=== PATIENT | male | born 1990 | race Caucasian/White ===

== ENCOUNTER 2017-01-17 12:40 | Emergency (ER) | payer OTHER ==
[~2017-01-17] VITALS: Ht 188 cm; Wt 127.7 kg
[~2017-01-17 12:40] MED LIST: COMBVENT; FLOVENT
[2017-01-17 13:11] VITALS: BP 163/97
[2017-01-17] MEDS ORDERED: BACTRIM 160MG/800MG DS TAB PO ONE (14:00)
[2017-01-17] MEDS ORDERED: KETO2CR EXT (14:03)
[2017-01-17] MEDS ORDERED: BACT800T5 PO (14:03)
== END 2017-01-17 14:13 | disposition home or self-care (01) ==
LOC: M ED 12:40
DX: L03.116 Cellulitis of left lower limb (principal); L03.032 Cellulitis of left toe; J45.909 Unspecified asthma, uncomplicated; F17.200 Nicotine dependence, unspecified, uncomplicated; Z90.89 Acquired absence of other organs; Z88.0 Allergy status to penicillin; Z88.1 Allergy status to other antibiotic agents; Z88.8 Allergy status to other drugs, medicaments and biological substances

== ENCOUNTER 2017-01-24 17:20 | Observation (INO) | payer OTHER ==
[~2017-01-24] VITALS: Ht 188 cm; Wt 124.2 kg
[~2017-01-24 17:20] MED LIST changes: +BACT800T5 PO; +KETO2CR EXT; +VANCOMYCIN HCL 1,000 MG, VIAL MATE ADAPTER 1 EACH in D5W 250 ML IV SCH
[2017-01-24] MEDS ORDERED: LOTR1CRE11 TOP (17:57)
[2017-01-24] MEDS ORDERED: IMIPENEM/CILASTATIN 500 MG in D5W MINI-BAG PLUS 100 ML IV ONE (21:00)
[2017-01-24 21:29] LABS: BASO % 0.4 % (0.0-1.0); EOS # 0.1 K/mm3 (0.0-0.50); EOS % 1.1 % (0.0-3.0); LARGE UNSTAINED CELL # 0.2 K/mm3 (0.0-0.4); LYMPH # 2.3 K/mm3 (1.5-6.5); LYMPH % 17.7 % (24.0-44.0); MEAN CORPUSCULAR HEMOGLOBIN 30.5 pg (27.0-33.0); MEAN CORPUSCULAR HGB CONC 35.2 g/dl (32.0-36.5); MEAN CORPUSCULAR VOLUME 86.6 fl (80.0-96.0); MONO # 0.7 K/mm3 (0.0-0.8); MONO % 6.2 % (0.0-5.0); NEUTROPHILS # 8.4 K/mm3 (1.8-7.7); NEUTROPHILS % 72.5 % (36.0-66.0); PLATELET COUNT, AUTOMATED 251 k/mm3 (150-450); RED CELL DISTRIBUTION WIDTH 12.8 % (11.5-14.5); WHITE BLOOD COUNT 11.5 K/mm3 (4.0-10.0)
[2017-01-24 21:39] LABS: ALBUMIN 4.7 GM/DL (3.2-5.2); ALBUMIN/GLOBULIN RATIO 1.27 (1.00-1.93); ALKALINE PHOSPHATASE 54 U/L (45-117); ALT/SGPT 42 U/L (12-78); ANION GAP 11 MEQ/L (8-16); AST/SGOT 26 U/L (15-37); BILIRUBIN,DIRECT 0.2 MG/DL (0.0-0.2); BILIRUBIN,TOTAL 0.9 MG/DL (0.2-1.0); BLOOD UREA NITROGEN 18 MG/DL (7-18); CALCIUM LEVEL 9.3 MG/DL (8.5-10.1); CARBON DIOXIDE LEVEL 21 MEQ/L (21-32); CHLORIDE LEVEL 103 MEQ/L (98-107); CREATININE FOR GFR 1.14 MG/DL (0.70-1.30); GLOMERULAR FILTRATION RATE > 60.0 (>60); GLUCOSE, FASTING 100 MG/DL (70-105); POTASSIUM SERUM 4.2 MEQ/L (3.5-5.1); SODIUM LEVEL 135 MEQ/L (136-145); TOTAL PROTEIN 8.4 GM/DL (6.4-8.2)
[2017-01-24 21:45] LABS: MICROSCOPIC INDICATED? MAN YES (NO)
[2017-01-24 21:55] LABS: SQUAMOUS EPITHELIAL CELL URINE SMALL AMOUNT /hpf (SMALL AMT)
[2017-01-24 21:59] LABS: GRANULAR CAST, URINE 0-1 /lpf; URIC ACID CRYSTALS, URINE LARGE AMOUNT /hpf
[2017-01-24 22:01] LABS: BACTERIA, URINE NONE SEEN; HYALINE CAST, URINE NONE SEEN /lpf (0-1); MICROSCOPIC EXAM PERFORMED
[2017-01-24 22:07] LABS: ERYTHROCYTE SEDIMENTATION RATE 5 mm/hr (0-15)
[2017-01-24] MEDS ORDERED: BACT800T5 PO (22:44)
[2017-01-24] MEDS ORDERED: ACETAMINOPHEN TAB 650MG DOSE (2X325MG) PO PRN (22:45)
[2017-01-24] MEDS ORDERED: MORPHINE 2 MG/ML 1ML SYRINGE IV PRN (22:45)
[2017-01-24] MEDS ORDERED: ONDANSETRON 4MG/2ML VIAL (J2405) IV PRN (22:45)
[2017-01-24] MEDS ORDERED: hydrOXYzine 10 MG TAB PO PRN (23:15)
[2017-01-24] MEDS ORDERED: IPRATROPIUM 0.5MG/ALBUTEROL 2.5MG INH SOL UD 3ML (DUONEB)(J7620) NEB PRN (23:30)
[2017-01-24 23:39] LABS: MAGNESIUM LEVEL 2.3 MG/DL (1.8-2.4)
[2017-01-25] MEDS ORDERED: VANCOMYCIN HCL 1,000 MG, VIAL MATE ADAPTER 1 EACH in D5W 250 ML IV ONE (00:30)
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
[2017-01-25] MEDS: IPRATROPIUM 0.5MG/ALBUTEROL 2.5MG INH SOL UD 3ML (DUONEB)(J7620) NEB SCH ×4 (01:13→23:47)
--- NOTE | 2017-01-25 04:31 | PHACANCOPD ---
PHARMACY VANCOMYCIN DOSING Pt Demographics Demographics Patient Age:26 , Weight:127.200 , Gender: male Adjusted Body Weight Date: 01/25/17, Adjusted Body Weight: [100.2] Kg Vancomycin Vancomycin indication: LEFT ANKLE CELLULITIS Vancomycin Target Ranges: 15-20 mcg/ml Vancomycin Load Y/N: Yes Load Dose Date Time Vancomycin Load Dose: 2GM Date: 01/25 Time: 0200 Vancomycin Dose Date: 01/25/17. Current Vancomycin Dose: [1GM Q8H] Intermittent Dosing?: No Labs Labs Laboratory Tests 01/24/17 21:08 Red Blood Count 5.33, Mean Corpuscular Volume 86.6, Mean Corpuscular Hemoglobin 30.5, Mean Corpuscular Hemoglobin Concent 35.2, Red Cell Distribution Width 12.8 , Neutrophils (%) (Auto) 72.5 H, Lymphocytes (%) (Auto) 17.7 L, Monocytes (%) ( Auto) 6.2 H, Eosinophils (%) (Auto) 1.1, Basophils (%) (Auto) 0.4, Neutrophils # (Auto) 8.4 H, Lymphocytes # (Auto) 2.3, Monocytes # (Auto) 0.7, Eosinophils # (Auto) 0.1, Basophils # (Auto) 0.0 Micro Microbiology 01/24/17 Blood Culture, Received Pending 01/24/17 Blood Culture, Received Pending Creatinine Clearance Date:01/25/17. Creatinine Clearance: [138].CALCULATED Pending Labs VANCO TROUGH DUE 01/25@1800 Assessment and Plan Maintaining Current Dose?: Yes Reason for dose change: No Dose Change Pharmacist Note Pharmacist Note Date: 01/25/17. Pharmacist note:[id number] ADMITTED W/LEFT ANKLE CELLULITUS: SCR=1.14, HT=74',DL=793.2KG,DBJM=858. Vancomycin 2 gm load given in ED,Then continued at 1 gm iv q8h,trough ordered for 01/25@1800-will continue to follow levels and labs T[facility] Jan 25, 2017 04:31
[2017-01-25] MEDS: NS 1,000 ML IV SCH ×3 (05:12→18:53)
[2017-01-25] MEDS: HEPARIN SOD (PORCINE) 5000 UNITS/ML VIAL SC SCH ×3 (06:00→21:15)
[2017-01-25 07:10] VITALS: BP 124/72
[2017-01-25 07:13] LABS: BASO % 0.5 % (0.0-1.0); EOS # 0.1 K/mm3 (0.0-0.50); EOS % 1.6 % (0.0-3.0); LARGE UNSTAINED CELL # 0.3 K/mm3 (0.0-0.4); LARGE UNSTAINED CELL % 2.8 % (0.0-4.0); LYMPH # 1.6 K/mm3 (1.5-6.5); LYMPH % 15.2 % (24.0-44.0); MEAN CORPUSCULAR HEMOGLOBIN 30.1 pg (27.0-33.0); MEAN CORPUSCULAR HGB CONC 34.5 g/dl (32.0-36.5); MEAN CORPUSCULAR VOLUME 87.4 fl (80.0-96.0); MONO # 0.8 K/mm3 (0.0-0.8); MONO % 9.5 % (0.0-5.0); NEUTROPHILS # 6.1 K/mm3 (1.8-7.7); NEUTROPHILS % 70.3 % (36.0-66.0); PLATELET COUNT, AUTOMATED 211 k/mm3 (150-450); WHITE BLOOD COUNT 8.7 K/mm3 (4.0-10.0)
[2017-01-25 07:40] LABS: ANION GAP 10 MEQ/L (8-16); BLOOD UREA NITROGEN 18 MG/DL (7-18); CALCIUM LEVEL 8.7 MG/DL (8.5-10.1); CARBON DIOXIDE LEVEL 26 MEQ/L (21-32); CHLORIDE LEVEL 105 MEQ/L (98-107); GLOMERULAR FILTRATION RATE > 60.0 (>60); GLUCOSE, FASTING 121 MG/DL (70-105); POTASSIUM SERUM 3.6 MEQ/L (3.5-5.1); SODIUM LEVEL 141 MEQ/L (136-145)
--- NOTE | 2017-01-25 08:02 | REP ---
Chest, single PA view: Comparison is 02/08/2007. The lung andrade are clear. The cardiac size is normal The reese, mediastinum, and bony thorax are unremarkable. Impression: Negative PA chest. There is no interval change Signed by Wlilie Jacobson MD 01/25/2017 07:52 A
[2017-01-25] MEDS: VANCOMYCIN HCL 1,000 MG, VIAL MATE ADAPTER 1 EACH in D5W 250 ML IV SCH ×3 (10:43→20:39)
[2017-01-25] MEDS: DOCUSATE SODIUM 100 MG CAP PO SCH ×3 (10:44→20:39)
[2017-01-25 14:00] VITALS: BP 144/79
--- NOTE | 2017-01-25 17:53 | IPNPDOC ---
Text Note Date of Service The patient was seen on 01/25/17. NOTE Subjective: Patient states area of cellulitis has improved. Mild tenderness to palpation. Objective: Vitals: (see below) General: No acute distress, laying comfortably in bed. HEENT: Moist mucous membranes. Neck: No JVD or lymphadenopathy Cardiac: RRR, No murmurs Pulm: Clear to auscultation b/l. No wheezing, rhonchi Abd: NT/ND + BS Ext: Erythema of the LLE improving. Area was marked on admission and erythema is significantly improved. No cyanosis. Distal pulses intact. Labs (see below) Images: CXR 01/24/17 Impression: Negative PA chest. There is no interval change Assessment/Plan 1. LLE cellulitis - failed outpatient therapy. Continue vancomycin IV. Cultures pending. We will send for x-rays also ultrasound lower extremity. We' ll also obtain hepatitis panel and HIV given recurrent cellulitis. Patient is an IV drug abuser. Afebrile. Leukocytosis improving. 2. IV drug abuse- admitted to IV amphetamines on admission. Cessation counseling. Will need outpatient rehabilitation services. 3. Chest tightness- resolved. ? Related to drug use. Cardiac enzymes negative. EKG with no acute ST changes. 4. History of asthma- on nebulizers. Stable. 5. History of anxiety/depression. Will need outpatient follow-up. 6. History of seasonal allergies. DVT prophylaxis- hep subcutaneous. VS,Fishbone, I+O VS, Fishbone, I+O Laboratory Tests 01/24/17 21:08 Red Blood Count 5.33, Mean Corpuscular Volume 86.6, Mean Corpuscular Hemoglobin 30.5, Mean Corpuscular Hemoglobin Concent 35.2, Red Cell Distribution Width 12.8 , Neutrophils (%) (Auto) 72.5 H, Lymphocytes (%) (Auto) 17.7 L, Monocytes (%) ( Auto) 6.2 H, Eosinophils (%) (Auto) 1.1, Basophils (%) (Auto) 0.4, Neutrophils # (Auto) 8.4 H, Lymphocytes # (Auto) 2.3, Monocytes # (Auto) 0.7, Eosinophils # (Auto) 0.1, Basophils # (Auto) 0.0 01/25/17 06:50 Red Blood Count 4.91, Mean Corpuscular Volume 87.4, Mean Corpuscular Hemoglobin 30.1, Mean Corpuscular Hemoglobin Concent 34.5, Red Cell Distribution Width 13.0 , Neutrophils (%) (Auto) 70.3 H, Lymphocytes (%) (Auto) 15.2 L, Monocytes (%) ( Auto) 9.5 H, Eosinophils (%) (Auto) 1.6, Basophils (%) (Auto) 0.5, Neutrophils # (Auto) 6.1, Lymphocytes # (Auto) 1.6, Monocytes # (Auto) 0.8, Eosinophils # ( Auto) 0.1, Basophils # (Auto) 0.0, Calcium Level 8.7 Vital Signs Date Time Temp Pulse Resp B/P (MAP) Pulse Ox O2 Delivery O2 Flow Rate FiO2 01/25/17 14:00 98.0 91 18 144/79 (100) 94 Room Air I&O- Last 24 Hours up to 6 AM 01/25/17 05:59 Intake Total 370 ml Balance 370 ml MARCIO GREER MD Jan 25, 2017 17:53
--- NOTE | 2017-01-25 19:41 | REP ---
LEFT LOWER LEG: AP and lateral views of the left lower leg are performed. There is no fracture, dislocation or osseous destruction. No periosteal reaction is seen. IMPRESSION: Negative exam left lower leg. Signed by Willie Freire MD 01/25/2017 08:18 P
--- NOTE | 2017-01-25 20:17 | REP ---
Bilateral lower extremity Duplex Doppler venous ultrasound: Real time compression and duplex Doppler interrogation of the bilateral lower extremity deep venous system is performed. Bilaterally, the common femoral, superficial femoral and popliteal veins are fully compressible with transducer pressure and demonstrate normal spontaneous and phasic flow, without evidence of deep venous thrombosis. Impression: No evidence of deep venous thrombosis of the bilateral lower extremity femoral popliteal venous system. Signed by Willie Freire MD 01/25/2017 08:08 P
[2017-01-25 22:00] VITALS: BP 117/66
[2017-01-26] MEDS: VANCOMYCIN HCL 1,000 MG, VIAL MATE ADAPTER 1 EACH in D5W 250 ML IV SCH ×2 (02:25→08:39)
[2017-01-26] MEDS: NS 1,000 ML IV SCH ×2 (02:26→08:39)
[2017-01-26 06:00] VITALS: BP 131/75
[2017-01-26] MEDS: HEPARIN SOD (PORCINE) 5000 UNITS/ML VIAL SC SCH (06:00)
[2017-01-26 06:50] LABS: BASO % 0.6 % (0.0-1.0); EOS # 0.2 K/mm3 (0.0-0.50); LARGE UNSTAINED CELL # 0.2 K/mm3 (0.0-0.4); LARGE UNSTAINED CELL % 3.3 % (0.0-4.0); LYMPH # 1.9 K/mm3 (1.5-6.5); LYMPH % 35.6 % (24.0-44.0); MEAN CORPUSCULAR HEMOGLOBIN 30.6 pg (27.0-33.0); MEAN CORPUSCULAR HGB CONC 34.7 g/dl (32.0-36.5); MEAN CORPUSCULAR VOLUME 88.1 fl (80.0-96.0); MONO # 0.4 K/mm3 (0.0-0.8); MONO % 7.4 % (0.0-5.0); NEUTROPHILS # 2.5 K/mm3 (1.8-7.7); NEUTROPHILS % 50.1 % (36.0-66.0); PLATELET COUNT, AUTOMATED 208 k/mm3 (150-450); WHITE BLOOD COUNT 4.9 K/mm3 (4.0-10.0)
[2017-01-26 07:01] LABS: ANION GAP 9 MEQ/L (8-16); BLOOD UREA NITROGEN 9 MG/DL (7-18); CALCIUM LEVEL 8.3 MG/DL (8.5-10.1); CARBON DIOXIDE LEVEL 25 MEQ/L (21-32); CHLORIDE LEVEL 112 MEQ/L (98-107); CREATININE FOR GFR 0.68 MG/DL (0.70-1.30); GLOMERULAR FILTRATION RATE > 60.0 (>60); GLUCOSE, FASTING 113 MG/DL (70-105); POTASSIUM SERUM 4.4 MEQ/L (3.5-5.1); SODIUM LEVEL 146 MEQ/L (136-145)
[2017-01-26 07:30] LABS: ERYTHROCYTE SEDIMENTATION RATE 10 mm/hr (0-15)
[2017-01-26] MEDS: IPRATROPIUM 0.5MG/ALBUTEROL 2.5MG INH SOL UD 3ML (DUONEB)(J7620) NEB SCH (07:36)
[2017-01-26] MEDS: DOCUSATE SODIUM 100 MG CAP PO SCH (08:39)
[2017-01-26] MEDS ORDERED: DOXY-278 PO (10:38)
[2017-01-26 11:15] LABS: HEPATITIS B SURFACE ANTIBODY POSITIVE (POSITIVE)
--- NOTE | 2017-01-26 16:42 | DS.PDOC ---
Discharge Summary General Date of Admission Jan 24, 2017 at 22:11 Date of Discharge 01/26/17 Attending Physician: MARCIO GREER MD Discharge Summary PROCEDURES PERFORMED DURING STAY: None. ADMITTING/DISCHARGE DIAGNOSES: 1. Cellulitis of the left lower extremity, failed outpatient therapy. 2. History of IV drug abuse, recent use of IV amphetamines and heroin. 3. History of asthma 4. History of anxiety and depression COMPLICATIONS/CHIEF COMPLAINT: Cellulitis. HISTORY OF PRESENT ILLNESS/HOSPITAL COURSE: . This is a 26-year-old male past medical history of IV drug abuse recently using IV amphetamines as well as heroin who presents complaining of erythema and pain of the left lower extremity. Patient was noted to have cellulitis of the left lower extremity was patient's however the erythema has not improved. Patient was admitted and placed on vancomycin with significant improvement of his cellulitis. I did dependency counselor the patient on cessation of IV drug abuse as well as tobacco abuse , and seeking rehabilitation. Patient states he will think about it however is not interested at this time. At this time patient denies any chest pain/SOB/palpitations. He remains hemodynamically stable. Patient will be discharged today to complete a full course of antibiotics for his cellulitis. DISCHARGE MEDICATIONS: Please see below. ALLERGIES: Please see below. PHYSICAL EXAMINATION ON DISCHARGE: Vitals: (see below) General: No acute distress, laying comfortably in bed. HEENT: Moist mucous membranes. Neck: No JVD or lymphadenopathy Cardiac: RRR, No murmurs Pulm: Clear to auscultation b/l. No wheezing, rhonchi Abd: NT/ND + BS Ext: Erythema of the LLE resolved. No cyanosis. Distal pulses intact. Neuro: Strength 5/5 BUE and BLE. CN 2-12 intact. F to N intact Ambulating well. LABORATORY DATA: Please see below. IMAGING: CXR 01/24/17 Impression: Negative PA chest. There is no interval change Doppler ultrasound 01/25/17 Impression: No evidence of deep venous thrombosis of the bilateral lower extremity femoral popliteal venous system. X-ray of the tibial/fibular region on 01/25/17 IMPRESSION: Negative exam left lower leg. PROGNOSIS: Fair ACTIVITY: As tolerated. DIET: Regular diet DISCHARGE PLAN/DISPOSITION: Home, Self-Care. DISCHARGE INSTRUCTIONS: 1. Follow-up PCP 1-2 weeks. Consider rehabilitation for IV drug abuse. DISCHARGE CONDITION: Stable. TIME SPENT ON DISCHARGE: Greater than 30 minutes. Vital Signs/I&Os Vital Signs Date Time Temp Pulse Resp B/P (MAP) Pulse Ox O2 Delivery O2 Flow Rate FiO2 01/26/17 06:00 97.1 75 16 131/75 (93) 94 Room Air I&O- Last 24 Hours up to 6 AM 01/26/17 06:00 Intake Total 6030 ml Output Total 2200 ml Balance 3830 ml Laboratory Data Labs 24H Laboratory Tests 2 01/25/17 17:49: Vancomycin Level Trough 7.8L 01/26/17 06:34: White Blood Count 4.9, Red Blood Count 4.44, Hemoglobin 13.6L, Hematocrit 39.1L , Mean Corpuscular Volume 88.1, Mean Corpuscular Hemoglobin 30.6, Mean Corpuscular Hemoglobin Concent 34.7, Red Cell Distribution Width 13.0, Platelet Count 208, Neutrophils (%) (Auto) 50.1, Lymphocytes (%) (Auto) 35.6, Monocytes ( %) (Auto) 7.4H, Eosinophils (%) (Auto) 3.0, Basophils (%) (Auto) 0.6, Neutrophils # (Auto) 2.5, Lymphocytes # (Auto) 1.9, Monocytes # (Auto) 0.4, Eosinophils # (Auto) 0.2, Basophils # (Auto) 0.0, Large Unclassified Cells % 3.3 , Large Unclassified Cells # 0.2, Erythrocyte Sedimentation Rate 10, Anion Gap 9 , Glomerular Filtration Rate > 60.0, Blood Urea Nitrogen 9, Creatinine 0.68L, Sodium Level 146H, Potassium Level 4.4#, Chloride Level 112H, Carbon Dioxide Level 25, Calcium Level 8.3L, C-Reactive Protein, Quantitative 2.92H, Hepatitis B Surface Antigen NEGATIVE, Hepatitis B Surface Antibody POSITIVE, HIV Antigen/ Antibody Combo Qual NEGATIVE CBC/BMP Laboratory Tests 01/26/17 06:34 Red Blood Count 4.44, Mean Corpuscular Volume 88.1, Mean Corpuscular Hemoglobin 30.6, Mean Corpuscular Hemoglobin Concent 34.7, Red Cell Distribution Width 13.0 , Neutrophils (%) (Auto) 50.1, Lymphocytes (%) (Auto) 35.6, Monocytes (%) (Auto ) 7.4 H, Eosinophils (%) (Auto) 3.0, Basophils (%) (Auto) 0.6, Neutrophils # ( Auto) 2.5, Lymphocytes # (Auto) 1.9, Monocytes # (Auto) 0.4, Eosinophils # (Auto ) 0.2, Basophils # (Auto) 0.0, Calcium Level 8.3 L Microbiology Microbiology 01/24/17 Blood Culture - Preliminary, Resulted No growth after 24 hours . All specim... 01/24/17 Blood Culture - Preliminary, Resulted No growth after 24 hours . All specim... Discharge Medications Scheduled Clotrimazole (Lotrimin AF) 1 % Cre, 1 DOSE TOP BID, (Reported) Doxycycline Hyclate (Doxycycline) 100 Mg Cap, 100 MG PO Q12H Allergies Coded Allergies: Cephalosporins (Verified Allergy, Intermediate, RASH, 01/24/17) Penicillins (Verified Allergy, Intermediate, RASH, 01/24/17) Penicillins Cross Reactors (Verified Allergy, Intermediate, RASH, 01/24/17) Clindamycin (Verified Allergy, Unknown, 01/24/17) SEASONAL ALLERGIES (Verified Allergy, Unknown, 01/24/17) MARCIO GREER MD Jan 26, 2017 16:42
[2017-01-28 10:13] LABS: HEPATITIS C QUANTITATION HCV Not Detected IU/mL (.)
== END 2017-01-26 11:42 | disposition home or self-care (01) ==
LOC: M ED 17:20 → M ED INP 22:11 → M MSPAV 01-25 07:01
PROVIDERS: ADMIT Hospitalist; ATTEND Internal Medicine
DX: L03.116 Cellulitis of left lower limb (principal); F15.10 Other stimulant abuse, uncomplicated; F11.10 Opioid abuse, uncomplicated; R07.89 Other chest pain; J45.909 Unspecified asthma, uncomplicated; F41.9 Anxiety disorder, unspecified; F32.9 Major depressive disorder, single episode, unspecified; F17.210 Nicotine dependence, cigarettes, uncomplicated; Z79.2 Long term (current) use of antibiotics; Z88.0 Allergy status to penicillin; Z88.1 Allergy status to other antibiotic agents
CPT/HCPCS: 36415; 71010; 73590; 80048; 80076; 80202; 81000; 82550; 82553; 83605; 83735; 84443; 85025; 85652; 86140; 86704; 86706; 87040; 87340; 87389; 87522; 93970; 94640; 96365; 96367; 96372; 96376; 99284; J3370

== ENCOUNTER 2017-02-17 15:48 | Emergency (ER) | payer OTHER ==
[~2017-02-17] VITALS: Ht 188 cm; Wt 98.1 kg
[2017-02-17 15:48] VITALS: BP 137/78
[~2017-02-17 15:48] MED LIST changes: +DOXY-278 PO; +LOTR1CRE11 TOP; -VANCOMYCIN HCL 1,000 MG, VIAL MATE ADAPTER 1 EACH in D5W 250 ML IV SCH
[2017-02-17] MEDS ORDERED: DOXY100C37 PO (18:44)
[2017-02-17] MEDS ORDERED: ULTR50TA8 PO (18:44)
== END 2017-02-17 19:10 | disposition home or self-care (01) ==
LOC: M ED 15:48
DX: L03.115 Cellulitis of right lower limb (principal); F17.210 Nicotine dependence, cigarettes, uncomplicated; F19.10 Other psychoactive substance abuse, uncomplicated; Z88.0 Allergy status to penicillin; Z88.1 Allergy status to other antibiotic agents; J30.2 Other seasonal allergic rhinitis

== ENCOUNTER 2017-03-05 06:49 | Emergency (ER) | payer OTHER ==
[~2017-03-05] VITALS: Ht 188 cm; Wt 115.9 kg
[~2017-03-05 06:49] MED LIST changes: +DOXY100C37 PO; +ULTR50TA8 PO
[2017-03-05] MEDS ORDERED: traMADol 50 MG TAB PO ONE (08:45)
[2017-03-05] MEDS ORDERED: IBUP80TA PO (08:46)
[2017-03-05] MEDS ORDERED: BACT800T5 PO (08:46)
[2017-03-05 08:47] LABS: BASO % 0.2 % (0.0-1.0); EOS # 0.1 K/mm3 (0.0-0.50); EOS % 1.4 % (0.0-3.0); LARGE UNSTAINED CELL # 0.1 K/mm3 (0.0-0.4); LARGE UNSTAINED CELL % 1.5 % (0.0-4.0); LYMPH % 11.2 % (24.0-44.0); MEAN CORPUSCULAR HEMOGLOBIN 30.4 pg (27.0-33.0); MEAN CORPUSCULAR HGB CONC 34.9 g/dl (32.0-36.5); MEAN CORPUSCULAR VOLUME 87.2 fl (80.0-96.0); MONO # 0.5 K/mm3 (0.0-0.8); NEUTROPHILS % 79.7 % (36.0-66.0); PLATELET COUNT, AUTOMATED 206 k/mm3 (150-450); RED CELL DISTRIBUTION WIDTH 13.3 % (11.5-14.5); WHITE BLOOD COUNT 8.8 K/mm3 (4.0-10.0)
[2017-03-05 09:11] LABS: ALBUMIN 3.4 GM/DL (3.2-5.2); ALBUMIN/GLOBULIN RATIO 1.13 (1.00-1.93); ALKALINE PHOSPHATASE 45 U/L (45-117); ALT/SGPT 33 U/L (12-78); ANION GAP 11 MEQ/L (8-16); AST/SGOT 19 U/L (15-37); BILIRUBIN,TOTAL 0.5 MG/DL (0.2-1.0); BLOOD UREA NITROGEN 17 MG/DL (7-18); CALCIUM LEVEL 8.4 MG/DL (8.5-10.1); CARBON DIOXIDE LEVEL 24 MEQ/L (21-32); CHLORIDE LEVEL 108 MEQ/L (98-107); CREATININE FOR GFR 0.77 MG/DL (0.70-1.30); GLOMERULAR FILTRATION RATE > 60.0 (>60); GLUCOSE, FASTING 121 MG/DL (70-105); POTASSIUM SERUM 3.7 MEQ/L (3.5-5.1); SODIUM LEVEL 143 MEQ/L (136-145); TOTAL PROTEIN 6.4 GM/DL (6.4-8.2)
[2017-03-05 10:06] LABS: ERYTHROCYTE SEDIMENTATION RATE 12 mm/hr (0-15)
[2017-03-05 10:15] VITALS: BP 160/80
== END 2017-03-05 10:16 | disposition home or self-care (01) ==
LOC: M ED 06:49
DX: L08.9 Local infection of the skin and subcutaneous tissue, unspecified (principal); M79.605 Pain in left leg; J45.909 Unspecified asthma, uncomplicated; F41.9 Anxiety disorder, unspecified; F32.9 Major depressive disorder, single episode, unspecified; F17.200 Nicotine dependence, unspecified, uncomplicated; F11.10 Opioid abuse, uncomplicated; F15.10 Other stimulant abuse, uncomplicated; Z88.1 Allergy status to other antibiotic agents; Z88.0 Allergy status to penicillin

== ENCOUNTER 2017-07-06 06:13 | Emergency (ER) | payer OTHER ==
[2017-07-06 06:41] LABS: BASO % 0.3 % (0.0-1.0); EOS # 0.1 10^3/uL (0.0-0.50); EOS % 0.7 % (0.0-3.0); HEMATOCRIT 47.7 % (42.0-52.0); HEMOGLOBIN 16.2 g/dl (14.0-18.0); IMMATURE GRANULOCYTE % 0.2 % (0-0); LYMPH # 2.8 10^3/uL (1.5-6.5); LYMPH % 30.6 % (24.0-44.0); MEAN CORPUSCULAR HEMOGLOBIN 29.6 pg (27.0-33.0); MONO # 0.9 10^3/uL (0.0-0.8); MONO % 10.3 % (0.0-5.0); NEUTROPHILS # 5.3 10^3/uL (1.8-7.7); NEUTROPHILS % 57.9 % (36.0-66.0); PLATELET COUNT, AUTOMATED 260 10^3/uL (150-450); RED BLOOD COUNT 5.48 10^6/uL (4.30-6.10); RED CELL DISTRIBUTION WIDTH 14.4 % (11.5-14.5); WHITE BLOOD COUNT 9.1 10^3/uL (4.0-10.0)
[2017-07-06] MEDS: NS 1,000 ML IV (06:41)
[2017-07-06 07:05] LABS: ALBUMIN/GLOBULIN RATIO 0.98 (1.00-1.93); ALKALINE PHOSPHATASE 64 U/L (45-117); ALT/SGPT 44 U/L (12-78); ANION GAP 7 MEQ/L (8-16); AST/SGOT 20 U/L (7-37); BILIRUBIN,DIRECT 0.2 MG/DL (0.0-0.2); BILIRUBIN,TOTAL 0.5 MG/DL (0.2-1.0); BLOOD UREA NITROGEN 20 MG/DL (7-18); CALCIUM LEVEL 8.9 MG/DL (8.5-10.1); CARBON DIOXIDE LEVEL 29 MEQ/L (21-32); CHLORIDE LEVEL 103 MEQ/L (98-107); CPK CREATINE PHOSPHOKINASE 115 U/L (39-308); CREATININE FOR GFR 1.06 MG/DL (0.70-1.30); ETHYL ALCOHOL (ETHANOL) < 0.003 % (0.000-0.010); GLOMERULAR FILTRATION RATE > 60.0 (>60); GLUCOSE, FASTING 144 MG/DL (70-105); POTASSIUM SERUM 3.9 MEQ/L (3.5-5.1); SALICYLATE LEVEL 2.4 MG/DL (5.0-30.0); SODIUM LEVEL 139 MEQ/L (136-145); TOTAL PROTEIN 8.1 GM/DL (6.4-8.2)
[2017-07-06 07:06] LABS: ACETAMINOPHEN LEVEL < 2.0 UG/ML (10.0-30.0)
[2017-07-06 08:39] LABS: AMPHETAMINES LEVEL URINE POSITIVE (NEGATIVE); BARBITURATES URINE NEGATIVE (NEGATIVE); BENZODIAZEPINES URINE NEGATIVE (NEGATIVE); CANNABINOIDS URINE NEGATIVE (NEGATIVE); COCAINE METABOLITE URINE NEGATIVE (NEGATIVE); METHADONE URINE NEGATIVE (NEGATIVE); OPIATES URINE POSITIVE (NEGATIVE); PHENCYCLIDINE URINE NEGATIVE (NEGATIVE)
== END 2017-07-06 10:49 | disposition home or self-care (01) ==
LOC: M ED 06:13
DX: F19.20 Other psychoactive substance dependence, uncomplicated (principal)
CPT/HCPCS: 93005

== ENCOUNTER 2018-01-09 05:02 | Emergency (ER) | payer OTHER ==
[2018-01-09] MEDS: BACTRIM 160MG/800MG DS TAB PO (06:47)
== END 2018-01-09 06:51 | disposition home or self-care (01) ==
LOC: M ED 05:02
DX: L03.113 Cellulitis of right upper limb (principal); F11.10 Opioid abuse, uncomplicated; J45.909 Unspecified asthma, uncomplicated; K21.9 Gastro-esophageal reflux disease without esophagitis; F41.9 Anxiety disorder, unspecified; Z88.0 Allergy status to penicillin; Z88.1 Allergy status to other antibiotic agents; Z88.8 Allergy status to other drugs, medicaments and biological substances; F17.210 Nicotine dependence, cigarettes, uncomplicated
CPT/HCPCS: 99282

== ENCOUNTER 2018-02-05 03:09 | Emergency (ER) | payer OTHER ==
[2018-02-05 04:10] LABS: BASO % 0.3 % (0.0-1.0); EOS # 0.4 10^3/uL (0.0-0.50); EOS % 4.6 % (0.0-3.0); HEMATOCRIT 42.9 % (42.0-52.0); HEMOGLOBIN 14.5 g/dl (13.5-17.5); IMMATURE GRANULOCYTE % 0.4 % (0-3.0); LYMPH # 2.1 10^3/uL (1.5-6.5); LYMPH % 27.4 % (24.0-44.0); MEAN CORPUSCULAR HEMOGLOBIN 30.3 pg (27.0-33.0); MEAN CORPUSCULAR HGB CONC 33.8 g/dl (32.0-36.5); MEAN CORPUSCULAR VOLUME 89.6 fl (80.0-96.0); MONO # 0.9 10^3/uL (0.0-0.8); MONO % 10.9 % (0.0-5.0); NEUTROPHILS # 4.4 10^3/uL (1.8-7.7); NEUTROPHILS % 56.4 % (36.0-66.0); PLATELET COUNT, AUTOMATED 268 10^3/uL (150-450); RED BLOOD COUNT 4.79 10^6/uL (4.30-6.10); RED CELL DISTRIBUTION WIDTH 13.6 % (11.5-14.5); WHITE BLOOD COUNT 7.8 10^3/uL (4.0-10.0)
[2018-02-05 04:36] LABS: ALBUMIN 3.7 GM/DL (3.2-5.2); ALBUMIN/GLOBULIN RATIO 0.97 (1.00-1.93); ALKALINE PHOSPHATASE 55 U/L (45-117); ALT/SGPT 160 U/L (12-78); ANION GAP 5 MEQ/L (8-16); AST/SGOT 78 U/L (7-37); BILIRUBIN,DIRECT 0.2 MG/DL (0.0-0.2); BILIRUBIN,TOTAL 0.6 MG/DL (0.2-1.0); BLOOD UREA NITROGEN 15 MG/DL (7-18); CALCIUM LEVEL 8.8 MG/DL (8.5-10.1); CARBON DIOXIDE LEVEL 31 MEQ/L (21-32); CHLORIDE LEVEL 106 MEQ/L (98-107); CREATININE FOR GFR 0.84 MG/DL (0.70-1.30); GLOMERULAR FILTRATION RATE > 60.0 (>60); GLUCOSE, FASTING 125 MG/DL (70-100); LIPASE 66 U/L (73-393); POTASSIUM SERUM 3.8 MEQ/L (3.5-5.1); SODIUM LEVEL 142 MEQ/L (136-145); TOTAL PROTEIN 7.5 GM/DL (6.4-8.2)
[2018-02-05 05:51] LABS: ETHYL ALCOHOL (ETHANOL) 0.003 % (0.000-0.010)
== END 2018-02-05 06:50 | disposition home or self-care (01) ==
LOC: M ED 03:09
DX: F19.10 Other psychoactive substance abuse, uncomplicated (principal); R10.9 Unspecified abdominal pain; J30.2 Other seasonal allergic rhinitis; Z88.0 Allergy status to penicillin; Z88.1 Allergy status to other antibiotic agents; Z88.8 Allergy status to other drugs, medicaments and biological substances
CPT/HCPCS: 80320

== ENCOUNTER 2018-02-20 02:12 | Emergency (ER) | payer SELFPAY, OTHER ==
[2018-02-20 04:16] LABS: BASO # 0.1 10^3/uL (0.0-0.2); BASO % 0.4 % (0.0-1.0); EOS # 0.2 10^3/uL (0.0-0.50); EOS % 1.3 % (0.0-3.0); HEMATOCRIT 53.8 % (42.0-52.0); HEMOGLOBIN 17.8 g/dl (13.5-17.5); IMMATURE GRANULOCYTE % 0.7 % (0-3.0); LYMPH # 1.5 10^3/uL (1.5-6.5); LYMPH % 8.4 % (24.0-44.0); MEAN CORPUSCULAR HEMOGLOBIN 30.5 pg (27.0-33.0); MEAN CORPUSCULAR HGB CONC 33.1 g/dl (32.0-36.5); MEAN CORPUSCULAR VOLUME 92.1 fl (80.0-96.0); MONO # 1.2 10^3/uL (0.0-0.8); MONO % 6.8 % (0.0-5.0); NEUTROPHILS # 14.8 10^3/uL (1.8-7.7); NEUTROPHILS % 82.4 % (36.0-66.0); PLATELET COUNT, AUTOMATED 143 10^3/uL (150-450); POS COUNT POS FLAG; RED BLOOD COUNT 5.84 10^6/uL (4.30-6.10); RED CELL DISTRIBUTION WIDTH 13.9 % (11.5-14.5)
[2018-02-20 04:33] LABS: ANION GAP 8 MEQ/L (8-16); BLOOD UREA NITROGEN 15 MG/DL (7-18); CALCIUM LEVEL 9.1 MG/DL (8.5-10.1); CARBON DIOXIDE LEVEL 25 MEQ/L (21-32); CHLORIDE LEVEL 106 MEQ/L (98-107); CREATININE FOR GFR 0.85 MG/DL (0.70-1.30); GLOMERULAR FILTRATION RATE > 60.0 (>60); GLUCOSE, FASTING 116 MG/DL (70-100); POTASSIUM SERUM 4.5 MEQ/L (3.5-5.1); SODIUM LEVEL 139 MEQ/L (136-145)
== END 2018-02-20 05:52 | disposition home or self-care (01) ==
LOC: M ED 02:12
DX: R10.9 Unspecified abdominal pain (principal); F19.10 Other psychoactive substance abuse, uncomplicated; F17.200 Nicotine dependence, unspecified, uncomplicated
CPT/HCPCS: 80048

== ENCOUNTER 2018-02-23 19:11 | Observation (INO) | payer SELFPAY ==
[2018-02-23 21:41] LABS: HEMATOCRIT 45.1 % (42.0-52.0); HEMOGLOBIN 15.2 g/dl (13.5-17.5); MEAN CORPUSCULAR HEMOGLOBIN 29.7 pg (27.0-33.0); MEAN CORPUSCULAR HGB CONC 33.7 g/dl (32.0-36.5); MEAN CORPUSCULAR VOLUME 88.3 fl (80.0-96.0); PLATELET COUNT, AUTOMATED 258 10^3/uL (150-450); RED BLOOD COUNT 5.11 10^6/uL (4.30-6.10); RED CELL DISTRIBUTION WIDTH 13.6 % (11.5-14.5); WHITE BLOOD COUNT 13.3 10^3/uL (4.0-10.0)
[2018-02-23 21:57] LABS: ALBUMIN 3.4 GM/DL (3.2-5.2); ALBUMIN/GLOBULIN RATIO 0.92 (1.00-1.93); ALKALINE PHOSPHATASE 73 U/L (45-117); ALT/SGPT 446 U/L (12-78); ANION GAP 10 MEQ/L (8-16); AST/SGOT 226 U/L (7-37); BILIRUBIN,DIRECT 0.2 MG/DL (0.0-0.2); BILIRUBIN,TOTAL 0.5 MG/DL (0.2-1.0); BLOOD UREA NITROGEN 12 MG/DL (7-18); CALCIUM LEVEL 8.5 MG/DL (8.5-10.1); CARBON DIOXIDE LEVEL 25 MEQ/L (21-32); CHLORIDE LEVEL 106 MEQ/L (98-107); CREATININE FOR GFR 0.73 MG/DL (0.70-1.30); GLOMERULAR FILTRATION RATE > 60.0 (>60); GLUCOSE, FASTING 99 MG/DL (70-100); POTASSIUM SERUM 3.9 MEQ/L (3.5-5.1); SALICYLATE LEVEL < 1.7 MG/DL (5.0-30.0); SODIUM LEVEL 141 MEQ/L (136-145); TOTAL PROTEIN 7.1 GM/DL (6.4-8.2)
[2018-02-23 22:00] LABS: ACETAMINOPHEN LEVEL < 2.0 UG/ML (10.0-30.0); ETHYL ALCOHOL (ETHANOL) < 0.003 % (0.000-0.010)
[2018-02-23 22:19] LABS: AMPHETAMINES LEVEL URINE POSITIVE (NEGATIVE); BARBITURATES URINE NEGATIVE (NEGATIVE); BENZODIAZEPINES URINE NEGATIVE (NEGATIVE); CANNABINOIDS URINE NEGATIVE (NEGATIVE); COCAINE METABOLITE URINE POSITIVE (NEGATIVE); METHADONE URINE POSITIVE (NEGATIVE); OPIATES URINE POSITIVE (NEGATIVE); PHENCYCLIDINE URINE NEGATIVE (NEGATIVE)
[2018-02-24] MEDS: NS 1,000 ML IV ×4 (02:30→23:12)
[2018-02-24 03:00] LABS: ALBUMIN 3.1 GM/DL (3.2-5.2); ALBUMIN/GLOBULIN RATIO 0.89 (1.00-1.93); ALKALINE PHOSPHATASE 74 U/L (45-117); ALT/SGPT 439 U/L (12-78); AST/SGOT 235 U/L (7-37); BILIRUBIN,DIRECT 0.2 MG/DL (0.0-0.2); BILIRUBIN,TOTAL 0.5 MG/DL (0.2-1.0); TOTAL PROTEIN 6.6 GM/DL (6.4-8.2)
[2018-02-24] MEDS: HEPARIN SOD (PORCINE) 5000 UNITS/ML VIAL SC ×3 (05:56→21:59)
[2018-02-24 07:16] LABS: HEMATOCRIT 42.9 % (42.0-52.0); HEMOGLOBIN 14.7 g/dl (13.5-17.5); MEAN CORPUSCULAR HEMOGLOBIN 30.6 pg (27.0-33.0); MEAN CORPUSCULAR HGB CONC 34.3 g/dl (32.0-36.5); MEAN CORPUSCULAR VOLUME 89.4 fl (80.0-96.0); PLATELET COUNT, AUTOMATED 229 10^3/uL (150-450); RED CELL DISTRIBUTION WIDTH 13.8 % (11.5-14.5); WHITE BLOOD COUNT 8.7 10^3/uL (4.0-10.0)
[2018-02-24 07:29] LABS: INR 1.06; PROTHROMBIN TIME 13.9 SECONDS (12.1-14.4)
[2018-02-24 07:50] LABS: ALBUMIN/GLOBULIN RATIO 0.88 (1.00-1.93); ALKALINE PHOSPHATASE 75 U/L (45-117); ALT/SGPT 441 U/L (12-78); ANION GAP 9 MEQ/L (8-16); AST/SGOT 233 U/L (7-37); BILIRUBIN,TOTAL 0.4 MG/DL (0.2-1.0); BLOOD UREA NITROGEN 11 MG/DL (7-18); CALCIUM LEVEL 8.4 MG/DL (8.5-10.1); CARBON DIOXIDE LEVEL 26 MEQ/L (21-32); CHLORIDE LEVEL 108 MEQ/L (98-107); CREATININE FOR GFR 0.66 MG/DL (0.70-1.30); GLOMERULAR FILTRATION RATE > 60.0 (>60); GLUCOSE, FASTING 121 MG/DL (70-100); SODIUM LEVEL 143 MEQ/L (136-145); TOTAL PROTEIN 6.4 GM/DL (6.4-8.2)
[2018-02-24 08:04] LABS: ACETAMINOPHEN LEVEL < 2.0 UG/ML (10.0-30.0)
[2018-02-24 13:40] LABS: HEPATITIS B SURFACE ANTIGEN NEGATIVE (NEGATIVE)
[2018-02-24 14:07] LABS: HEPATITIS B CORE ANTIBODY IGM NEGATIVE (NEGATIVE)
[2018-02-24 14:08] LABS: HIV 1&2 SCREEN CENTAUR NEGATIVE (NEGATIVE)
[2018-02-24 14:09] LABS: HEPATITIS A ANTIBODY IGM NEGATIVE (NEGATIVE)
[2018-02-24 14:23] LABS: HEPATITIS C VIRUS ABY INDEX > 11.0 INDEX (<0.8)
[2018-02-24] MEDS: cloNIDine 0.1 MG TAB PO (18:03)
[2018-02-24] MEDS: hydrOXYzine 10 MG TAB PO (19:39)
[2018-02-24] MEDS: LORazepam 2 MG/ML VIAL (J2060) IV (23:59)
[2018-02-25] MEDS: diphenhydrAMINE INJ 50MG/ML VIAL (J1200) IV
[2018-02-25] MEDS: hydrOXYzine 10 MG TAB PO (01:26)
[2018-02-25] MEDS: cloNIDine 0.1 MG TAB PO (03:12)
[2018-02-25] MEDS: HEPARIN SOD (PORCINE) 5000 UNITS/ML VIAL SC (05:19)
[2018-02-25 05:59] LABS: HEMATOCRIT 46.1 % (42.0-52.0); HEMOGLOBIN 15.5 g/dl (13.5-17.5); MEAN CORPUSCULAR HEMOGLOBIN 29.8 pg (27.0-33.0); MEAN CORPUSCULAR HGB CONC 33.6 g/dl (32.0-36.5); MEAN CORPUSCULAR VOLUME 88.7 fl (80.0-96.0); PLATELET COUNT, AUTOMATED 254 10^3/uL (150-450); RED CELL DISTRIBUTION WIDTH 13.6 % (11.5-14.5); WHITE BLOOD COUNT 7.7 10^3/uL (4.0-10.0)
[2018-02-25 06:08] LABS: ALBUMIN 3.2 GM/DL (3.2-5.2); ALKALINE PHOSPHATASE 79 U/L (45-117); ALT/SGPT 523 U/L (12-78); ANION GAP 6 MEQ/L (8-16); AST/SGOT 262 U/L (7-37); BILIRUBIN,TOTAL 0.5 MG/DL (0.2-1.0); BLOOD UREA NITROGEN 8 MG/DL (7-18); CALCIUM LEVEL 8.7 MG/DL (8.5-10.1); CARBON DIOXIDE LEVEL 27 MEQ/L (21-32); CHLORIDE LEVEL 108 MEQ/L (98-107); CREATININE FOR GFR 0.61 MG/DL (0.70-1.30); GLOMERULAR FILTRATION RATE > 60.0 (>60); GLUCOSE, FASTING 109 MG/DL (70-100); POTASSIUM SERUM 4.3 MEQ/L (3.5-5.1); SODIUM LEVEL 141 MEQ/L (136-145); TOTAL PROTEIN 7.2 GM/DL (6.4-8.2)
[2018-02-27 14:17] LABS: HCV RNA NAA QUALITATIVE Positive (Negative)
== END 2018-02-25 15:14 | disposition home or self-care (01) ==
LOC: M ED INP 02-24 03:12 → M ED 19:11 → M MS5PR 02-24 13:50
DX: B18.2 Chronic viral hepatitis C (principal); F19.20 Other psychoactive substance dependence, uncomplicated; R45.851 Suicidal ideations; R74.0 Nonspecific elevation of levels of transaminase and lactic acid dehydrogenase [LDH]; F32.9 Major depressive disorder, single episode, unspecified; F41.9 Anxiety disorder, unspecified; Z88.0 Allergy status to penicillin; Z88.1 Allergy status to other antibiotic agents; F17.210 Nicotine dependence, cigarettes, uncomplicated; J45.909 Unspecified asthma, uncomplicated
CPT/HCPCS: J1200

== ENCOUNTER 2018-06-05 14:17 | Emergency (ER) | payer MEDICAID, SELFPAY | END 2018-06-05 16:43 | disposition home or self-care (01) | LOC: M ED 14:17 | DX: S93.402A Sprain of unspecified ligament of left ankle, initial encounter (principal); T14.8XXA Other injury of unspecified body region, initial encounter; X50.9XXA Other and unspecified overexertion or strenuous movements or postures, initial encounter; Y92.410 Unspecified street and highway as the place of occurrence of the external cause; J45.909 Unspecified asthma, uncomplicated; F11.10 Opioid abuse, uncomplicated; Z88.0 Allergy status to penicillin; Z88.1 Allergy status to other antibiotic agents; F17.210 Nicotine dependence, cigarettes, uncomplicated | CPT/HCPCS: 73610 ==

== ENCOUNTER 2018-07-18 20:59 | Emergency (ER) | payer MEDICAID, OTHER ==
[~2018-07-18] VITALS: Ht 188 cm; Wt 113.6 kg
[~2018-07-18 20:59] MED LIST changes: -DOXY-278 PO; +DOXY-350 PO; +IBUP80TA PO; -LOTR1CRE11 TOP; +LOTR1CRE12 TOP; +VENTAER INH
[2018-07-18] MEDS ORDERED: NS 1,000 ML IV ONE (21:45)
[2018-07-18 22:34] LABS: BASO % 0.5 % (0.0-1.0); EOS # 0.2 10^3/uL (0.0-0.50); EOS % 1.7 % (0.0-3.0); HEMOGLOBIN 13.3 g/dl (13.5-17.5); LYMPH # 2.2 10^3/uL (1.5-6.5); LYMPH % 25.1 % (24.0-44.0); MEAN CORPUSCULAR HEMOGLOBIN 31.2 pg (27.0-33.0); MEAN CORPUSCULAR HGB CONC 34.1 g/dl (32.0-36.5); MEAN CORPUSCULAR VOLUME 91.5 fl (80.0-96.0); MONO # 1.2 10^3/uL (0.0-0.8); MONO % 14.2 % (0.0-5.0); NEUTROPHILS % 58.3 % (36.0-66.0); PLATELET COUNT, AUTOMATED 226 10^3/uL (150-450); RED BLOOD COUNT 4.26 10^6/uL (4.30-6.10); WHITE BLOOD COUNT 8.6 10^3/uL (4.0-10.0)
--- NOTE | 2018-07-18 23:00 | REPVR ---
EXAM: US Duplex Bilateral Lower Extremity Veins EXAM DATE/TIME: 07/18/2018 10:45 PM CLINICAL HISTORY: 27 years old, male; Signs and symptoms; Edema, localized; Lower extremity, bilateral; Additional info: Calf, le edema, pain, R/O dvt TECHNIQUE: Real-time duplex ultrasound of the Bilateral Lower Extremities with 2-D miller scale, color Doppler flow and spectral waveform analysis. Complete exam focused on the bilateral lower extremity veins. COMPARISON: US Duplex, Ext LOWER veins, bilat 01/25/2017 7:37 PM FINDINGS: Right deep veins: Unremarkable. The common femoral, femoral, proximal profunda femoral and popliteal veins are patent without thrombus. Normal Doppler waveforms. Normal compressibility and/or augmentation response. Right superficial veins: Saphenofemoral junction is patent without thrombus. Left deep veins: Unremarkable. The common femoral, femoral, proximal profunda femoral and popliteal veins are patent without thrombus. Normal Doppler waveforms. Normal compressibility and/or augmentation response. Left superficial veins: Saphenofemoral junction is patent without thrombus. Lymph nodes: Mildly prominent bilateral inguinal lymph nodes, likely reactive. Soft tissues: Unremarkable. IMPRESSION: 1. No sonographic evidence of deep venous thrombosis. 2. Mildly prominent bilateral inguinal lymph nodes, likely reactive. Electronically signed by: Thien Mejia On 07/18/2018 22:59:57 PM
[2018-07-18 23:01] LABS: ALBUMIN 3.5 GM/DL (3.2-5.2); ALT/SGPT 209 U/L (12-78); BILIRUBIN,DIRECT 0.2 MG/DL (0.0-0.2); BILIRUBIN,TOTAL 0.8 MG/DL (0.2-1.0); BLOOD UREA NITROGEN 13 MG/DL (7-18); C REACTIVE PROTEIN QUANTITATIV 4.38 MG/DL (0.00-0.30); CALCIUM LEVEL 8.5 MG/DL (8.5-10.1); CARBON DIOXIDE LEVEL 26 MEQ/L (21-32); CHLORIDE LEVEL 104 MEQ/L (98-107); CREATININE FOR GFR 0.66 MG/DL (0.70-1.30); GLOMERULAR FILTRATION RATE > 60.0 (>60); GLUCOSE, FASTING 109 MG/DL (70-100); POTASSIUM SERUM 4.1 MEQ/L (3.5-5.1); SODIUM LEVEL 137 MEQ/L (136-145)
[2018-07-18 23:06] LABS: ERYTHROCYTE SEDIMENTATION RATE 12 mm/hr (0-15)
[2018-07-19] MEDS ORDERED: BACT800T5 PO (00:15)
[2018-07-19 00:25] VITALS: BP 132/60
== END 2018-07-19 00:27 | disposition home or self-care (01) ==
LOC: M ED 20:59
DX: L03.116 Cellulitis of left lower limb (principal); L03.115 Cellulitis of right lower limb; F17.210 Nicotine dependence, cigarettes, uncomplicated

== ENCOUNTER 2018-10-18 07:11 | Inpatient (IN) | payer OTHER ==
[~2018-10-18] VITALS: Ht 185.4 cm; Wt 100.0 kg
--- NOTE | 2018-10-18 08:00 | REP ---
Clinical: Trauma. Comparison: 09/02/2015 . Findings: The ventricles, sulci, and cisterns are normal in position and appearance. Freire-white differentiation is maintained. No acute intracranial hemorrhage, mass/mass effect, pathology or trauma/injury. No evidence for acute infarction. No extra-axial fluid collection. Calvarium is intact. Impression: Normal noncontrast head CT. No evidence for acute intracranial pathology or trauma/injury. Electronically Signed by Joel Bell MD 10/18/2018 07:52 A
--- NOTE | 2018-10-18 08:02 | REP ---
Clinical: Trauma . Technique: Axial noncontrast images from the skull base to the thoracic inlet with coronal and sagittal re-formations Findings: Normal alignment and lordosis is maintained. Cervical vertebral bodies including transverse processes and spinous processes are intact and there is no evidence for acute fracture / compression injury or subluxation. Spinal canal is patent. Posterior elements are intact. Paravertebral soft tissues are normal. Impression: Normal noncontrast cervical spine CT. No evidence for acute pathology or trauma/injury. Electronically Signed by Joel Bell MD 10/18/2018 07:54 A
[2018-10-18 10:00] LABS: HEMOGLOBIN 14.7 g/dl (13.5-17.5); MEAN CORPUSCULAR HEMOGLOBIN 30.2 pg (27.0-33.0); MEAN CORPUSCULAR HGB CONC 33.4 g/dl (32.0-36.5); MEAN CORPUSCULAR VOLUME 90.3 fl (80.0-96.0); PLATELET COUNT, AUTOMATED 203 10^3/uL (150-450); RED BLOOD COUNT 4.87 10^6/uL (4.30-6.10); WHITE BLOOD COUNT 16.2 10^3/uL (4.0-10.0)
[2018-10-18 10:30] LABS: ACETAMINOPHEN LEVEL < 2.0 UG/ML (10.0-30.0); BLOOD UREA NITROGEN 22 MG/DL (7-18); CALCIUM LEVEL 8.5 MG/DL (8.5-10.1); CARBON DIOXIDE LEVEL 30 MEQ/L (21-32); CHLORIDE LEVEL 106 MEQ/L (98-107); CREATININE FOR GFR 1.06 MG/DL (0.70-1.30); ETHYL ALCOHOL (ETHANOL) < 0.003 % (0.000-0.010); GLOMERULAR FILTRATION RATE > 60.0 (>60); GLUCOSE, FASTING 75 MG/DL (70-100); POTASSIUM SERUM 4.1 MEQ/L (3.5-5.1); SALICYLATE LEVEL 2.3 MG/DL (5.0-30.0); SODIUM LEVEL 140 MEQ/L (136-145)
[2018-10-18] MEDS ORDERED: LIDOCAINE 2% 5ML JELLY UROJET TOP ONE (11:00)
[2018-10-18 11:27] LABS: ALBUMIN 3.9 GM/DL (3.2-5.2); ALT/SGPT 87 U/L (12-78); BILIRUBIN,DIRECT 0.1 MG/DL (0.0-0.2); BILIRUBIN,TOTAL 0.4 MG/DL (0.2-1.0); LIPASE 61 U/L (73-393); TOTAL PROTEIN 7.8 GM/DL (6.4-8.2)
[2018-10-18 12:05] LABS: AMPHETAMINES LEVEL URINE POSITIVE (NEGATIVE); BARBITURATES URINE NEGATIVE (NEGATIVE); BENZODIAZEPINES URINE NEGATIVE (NEGATIVE); CANNABINOIDS URINE NEGATIVE (NEGATIVE); COCAINE METABOLITE URINE NEGATIVE (NEGATIVE); METHADONE URINE NEGATIVE (NEGATIVE); OPIATES URINE POSITIVE (NEGATIVE); PHENCYCLIDINE URINE NEGATIVE (NEGATIVE)
[2018-10-18] MEDS ORDERED: NS 1,000 ML IV ONE (13:45)
[2018-10-18] MEDS ORDERED: LevoFLOXacin IV 750 MG in APPROPRIATE DILUENT 1 EA IV ONE (13:45)
[2018-10-18 14:04] LABS: ABG BASE EXCESS -1.3 (-2.0-2.0); ABG HCO3 24.8 MEQ/L (22.0-26.0); ABG O2 SATURATION 98.4 % (95.0-99.0); ABG PARTIAL PRESSURE CO2 47.2 mmHg (35.0-45.0); ABG PARTIAL PRESSURE O2 113.7 mmHg (75.0-100.0); ABG STANDARD HCO3 23.4 MEQ/L (22.0-26.0); ABG TOTAL CO2 26.3 MEQ/L (22.0-29.0); ABG pH (ARTERIAL) 7.339 UNITS (7.350-7.450)
--- NOTE | 2018-10-18 14:27 | HPEPDOC ---
[facility] Medical History & Physical Date of Admission October 18, 2018 History and Physical CHIEF COMPLAINT: Drug Overdose HISTORY OF PRESENT ILLNESS: Brought in by police for drug overdose, after receiving anonymous call. PAST MEDICAL HISTORY: 1. transaminitis 2. anxiety/depression 3. suicidal ideation 4. polysubstance abuse REVIEW OF SYSTEMS: Unable to assess HOME MEDICATIONS: Please see below. PHYSICAL EXAMINATION: VSS General: NAD, somnolent but arousable with noxious stimuli HEENT: NC/AT, PERRL Lungs: CTA B/L Heart: +S1S2, RRR Abd: soft, +BS Ext: no edema LABORATORY DATA: See below. IMAGING: CTH, CT C spine - no acute pathology MICROBIOLOGY: Please see below. ASSESSMENT: 27 yo male for drug overdose, history of suicidal ideation. #drug overdose - ICU admit - continuous pulse ox, supplemental oxygen, titrate >92% - NPO - suicide precautions #possible PNA - check lactate - IV fluids - IV Levaquin - cephalosporin and PCN allergy - SCx and BCx pending #anxiety/depression #transaminitis Dispo: admit to ICU, possible PNA - IV fluids, IV levaquin Vital Signs Vital Signs Date Time Temp Pulse Resp B/P (MAP) Pulse Ox O2 Delivery O2 Flow Rate FiO2 10/18/18 14:07 77 97 10/18/18 13:52 98.3 14 10/18/18 13:45 115/59 (77) 10/18/18 12:22 Room Air Laboratory Data Labs 24H Laboratory Tests 2 10/18/18 09:39: Nucleated Red Blood Cells % (auto) 0.0, Urine Color YELLOW, Urine Appearance HAZY, Urine pH 5.0, Urine Specific Williams 1.016, Urine Protein 1+H, Urine Glucose (UA) NEGATIVE, Urine Ketones TRACEH, Urine Blood 3+H, Urine Nitrite NEGATIVE, Urine Bilirubin NEGATIVE, Urine Urobilinogen 0.2, Urine Leukocyte Esterase NEGATIVE, Urine WBC (Auto) 0, Urine RBC (Auto) 26H, Urine Hyaline Casts (Auto) 1, Urine Bacteria (Auto) NEGATIVE, Urine Squamous Epithelial Cells 0, Urine Sperm (Auto) , Anion Gap 4L, Glomerular Filtration Rate > 60.0, Calcium Level 8.5, Aspartate Amino Transf (AST/SGOT) 78H, Alanine Aminotransferase (ALT/SGPT) 87H, Alkaline Phosphatase 56, Total Bilirubin 0.4, Direct Bilirubin 0.1, Total Protein 7.8, Albumin 3.9, Albumin/Globulin Ratio 1.00, Lipase 61L, Salicylates Level 2.3L, Urine Amphetamines Screen POSITIVEH, Urine Benzodiazepines Screen NEGATIVE, Urine Opiates Screen POSITIVEH, Urine Methadone Screen NEGATIVE, Acetaminophen Level < 2.0L, Urine Barbiturates Screen NEGATIVE, Urine Phencyclidine Screen NEGATIVE, Urine Cocaine Metabolite Screen NEGATIVE, Urine Cannabinoids Screen NEGATIVE, Ethyl Alcohol Level < 0.003 10/18/18 12:12: Ammonia 32 10/18/18 13:37: Blood Gas Bicarbonate Standard 23.4, Arterial Blood pH 7.339L, Arterial Blood Partial Pressure CO2 47.2H, Arterial Blood Partial Pressure O2 113.7H, Arterial Blood Total CO2 26.3, Arterial Blood HCO3 24.8, Arterial Blood Base Excess -1.3, Arterial Blood Oxygen Saturation 98.4 10/18/18 13:42: CBC/BMP Laboratory Tests 10/18/18 09:39 Red Blood Count 4.87, Mean Corpuscular Volume 90.3, Mean Corpuscular Hemoglobin 30.2, Mean Corpuscular Hemoglobin Concent 33.4, Red Cell Distribution Width 13.4, Calcium Level 8.5 Microbiology Microbiology 10/18/18 Blood Culture, Received Pending Home Medications Unable to Obtain Active Prescriptions or Reported Meds Allergies Coded Allergies: Cephalosporins (Verified Allergy, Unknown, 10/18/18) Penicillins (Verified Allergy, Unknown, 10/18/18) clindamycin (Verified Allergy, Unknown, 10/18/18) AMINA RIVERA MD October 18, 2018 14:27
[2018-10-18] MEDS: NS 1,000 ML IV SCH ×2 (14:30→20:29)
--- NOTE | 2018-10-18 14:54 | REP ---
CHEST, PORTABLE: Portable supine film of the chest is performed and compared to prior study of 01/24/2017. There may be some mild streaky infiltrate in the left upper lobe. Right lung appears clear. Heart is not enlarged. Mediastinal silhouette is unremarkable. IMPRESSION: Possible streaky left upper lobe infiltrate. Electronically Signed by Willie Freire MD 10/20/2018 11:53 A
[2018-10-18 14:56] LABS: THYROID STIMULATING HORMONE 0.574 uIU/ML (0.358-3.740)
--- NOTE | 2018-10-18 15:00 | ECGEPIP ---
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
[2018-10-18 15:57] VITALS: BP 118/69
[2018-10-18 16:00] VITALS: O2SAT 95
[2018-10-18 16:05] VITALS: BP 115/66
[2018-10-18 17:00] VITALS: BP 116/65; O2SAT 96
[2018-10-18 18:00] VITALS: BP 116/76; O2SAT 97
[2018-10-18 20:00] VITALS: BP 126/72; O2SAT 99
[2018-10-19] VITALS (10 sets, daily range): BP systolic 116–150; BP diastolic 73–101
[2018-10-19 05:38] LABS: BASO % 0.3 % (0.0-1.0); EOS # 0.2 10^3/uL (0.0-0.50); EOS % 2.2 % (0.0-3.0); HEMATOCRIT 40.6 % (42.0-52.0); HEMOGLOBIN 13.6 g/dl (13.5-17.5); LYMPH # 2.2 10^3/uL (1.5-6.5); LYMPH % 25.8 % (24.0-44.0); MEAN CORPUSCULAR HEMOGLOBIN 29.9 pg (27.0-33.0); MEAN CORPUSCULAR HGB CONC 33.5 g/dl (32.0-36.5); MEAN CORPUSCULAR VOLUME 89.2 fl (80.0-96.0); MONO # 0.9 10^3/uL (0.0-0.8); MONO % 10.4 % (0.0-5.0); NEUTROPHILS # 5.3 10^3/uL (1.8-7.7); PLATELET COUNT, AUTOMATED 182 10^3/uL (150-450); RED BLOOD COUNT 4.55 10^6/uL (4.30-6.10); WHITE BLOOD COUNT 8.6 10^3/uL (4.0-10.0)
[2018-10-19 06:03] LABS: ALBUMIN 3.1 GM/DL (3.2-5.2); ALT/SGPT 75 U/L (12-78); BILIRUBIN,TOTAL 0.4 MG/DL (0.2-1.0); BLOOD UREA NITROGEN 12 MG/DL (7-18); CARBON DIOXIDE LEVEL 29 MEQ/L (21-32); CHLORIDE LEVEL 108 MEQ/L (98-107); CREATININE FOR GFR 0.78 MG/DL (0.70-1.30); GLOMERULAR FILTRATION RATE > 60.0 (>60); GLUCOSE, FASTING 126 MG/DL (70-100); POTASSIUM SERUM 3.8 MEQ/L (3.5-5.1); SODIUM LEVEL 140 MEQ/L (136-145); TOTAL PROTEIN 6.9 GM/DL (6.4-8.2)
[2018-10-19] MEDS: NS 1,000 ML IV SCH (06:28)
--- NOTE | 2018-10-19 08:02 | IPNPDOC ---
Text Note Date of Service The patient was seen on 10/19/18. NOTE Subjective: Patient seen and examined at bedside. Somnolent but answers questions and easily arousable. No acute overnight events. Does complains of some left leg pain - knee to ankle. Objective: General: NAD, lying comfortably in bed, sleepy HEENT: NC/AT, EOMI Lungs: CTA B/L Heart: +S1S2, RRR Abd: soft, +BS CHIEF COMPLAINT: Drug Overdose ASSESSMENT: 27 yo male for drug overdose, history of suicidal ideation. #drug overdose - no events noted on telemetry - somnolent but more awake today - suicide precautions #possible PNA - check lactate - IV fluids - IV Levaquin - cephalosporin and PCN allergy - SCx and BCx pending #anxiety/depression #transaminitis Dispo: continue antibiotics, could transition to PO Levaquin, downgrade today, ecg pending to check qt A-FIB/CHADSVASC A-FIB History Current/History of A-Fib/PAF?: No VS,Fishbone, I+O VS, Fishbone, I+O Laboratory Tests 10/18/18 09:39 Red Blood Count 4.87, Mean Corpuscular Volume 90.3, Mean Corpuscular Hemoglobin 30.2, Mean Corpuscular Hemoglobin Concent 33.4, Red Cell Distribution Width 13.4, Calcium Level 8.5 10/19/18 05:02 Red Blood Count 4.55, Mean Corpuscular Volume 89.2, Mean Corpuscular Hemoglobin 29.9, Mean Corpuscular Hemoglobin Concent 33.5, Red Cell Distribution Width 13.4, Calcium Level 8.0 L, Neutrophils (%) (Auto) 61.0, Lymphocytes (%) (Auto) 25.8, Monocytes (%) (Auto) 10.4 H, Eosinophils (%) (Auto) 2.2, Basophils (%) (Auto) 0.3, Neutrophils # (Auto) 5.3, Lymphocytes # (Auto) 2.2, Monocytes # (Auto) 0.9 H, Eosinophils # (Auto) 0.2, Basophils # (Auto) 0.0, Aspartate Amino Transf (AST/SGOT) 69 H, Alanine Aminotransferase (ALT/SGPT) 75, Alkaline Phosphatase 45, Total Bilirubin 0.4, Total Protein 6.9, Albumin 3.1 #L Vital Signs Date Time Temp Pulse Resp B/P (MAP) Pulse Ox O2 Delivery O2 Flow Rate FiO2 10/19/18 04:00 97.8 79 14 116/74 (88) 96 10/19/18 00:00 3.0 10/18/18 20:00 Nasal Cannula I&O- Last 24 Hours up to 6 AM 10/19/18 06:00 Intake Total 2100 ml Output Total 1700 ml Balance 400 ml AMINA RIVERA MD October 19, 2018 08:02
--- NOTE | 2018-10-19 14:23 | REP ---
Left knee four views History: Swelling There is no acute fracture or dislocation. There is minimal narrowing of the medial knee joint space. The lateral knee joint space and patellofemoral joint space are normal in appearance. Impression: There is no acute fracture or dislocation. Electronically Signed by Johnathon Manriquez MD 10/19/2018 02:15 P
--- NOTE | 2018-10-19 16:58 | ECGEPIP ---
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
[2018-10-20] VITALS: BP 125/75
[2018-10-20 04:00] VITALS: BP 134/101
[2018-10-20 05:01] LABS: BASO % 0.3 % (0.0-1.0); EOS # 0.3 10^3/uL (0.0-0.50); EOS % 2.9 % (0.0-3.0); HEMATOCRIT 42.3 % (42.0-52.0); HEMOGLOBIN 14.3 g/dl (13.5-17.5); LYMPH # 2.7 10^3/uL (1.5-6.5); LYMPH % 28.4 % (24.0-44.0); MEAN CORPUSCULAR HEMOGLOBIN 30.3 pg (27.0-33.0); MEAN CORPUSCULAR HGB CONC 33.8 g/dl (32.0-36.5); MEAN CORPUSCULAR VOLUME 89.6 fl (80.0-96.0); MONO # 0.9 10^3/uL (0.0-0.8); MONO % 9.3 % (0.0-5.0); NEUTROPHILS # 5.6 10^3/uL (1.8-7.7); NEUTROPHILS % 58.8 % (36.0-66.0); PLATELET COUNT, AUTOMATED 186 10^3/uL (150-450); RED BLOOD COUNT 4.72 10^6/uL (4.30-6.10); WHITE BLOOD COUNT 9.5 10^3/uL (4.0-10.0)
[2018-10-20 05:27] LABS: ALBUMIN 3.2 GM/DL (3.2-5.2); ALT/SGPT 59 U/L (12-78); BILIRUBIN,TOTAL 0.5 MG/DL (0.2-1.0); BLOOD UREA NITROGEN 6 MG/DL (7-18); CALCIUM LEVEL 8.4 MG/DL (8.5-10.1); CARBON DIOXIDE LEVEL 27 MEQ/L (21-32); CHLORIDE LEVEL 108 MEQ/L (98-107); CREATININE FOR GFR 0.75 MG/DL (0.70-1.30); GLOMERULAR FILTRATION RATE > 60.0 (>60); GLUCOSE, FASTING 136 MG/DL (70-100); POTASSIUM SERUM 3.8 MEQ/L (3.5-5.1); SODIUM LEVEL 139 MEQ/L (136-145); TOTAL PROTEIN 7.2 GM/DL (6.4-8.2)
[2018-10-20 07:42] VITALS: BP 136/88
--- NOTE | 2018-10-20 08:42 | IPNPDOC ---
Text Note Date of Service The patient was seen on 10/20/18. NOTE Subjective: Patient seen and examined at bedside. Somnolent but answers questions and easily arousable. No acute overnight events. Today complains of right rib pain. Objective: General: NAD, lying comfortably in bed HEENT: NC/AT, EOMI Lungs: CTA B/L Heart: +S1S2, RRR Abd: soft, +BS CHIEF COMPLAINT: Drug Overdose ASSESSMENT: 27 yo male for drug overdose, history of suicidal ideation. #drug overdose - no events noted on telemetry - suicide precautions #possible PNA - IV Levaquin - cephalosporin and PCN allergy - SCx and BCx pending #anxiety/depression #transaminitis Dispo: continue antibiotics, rib x-ray pending VS,Fishbone, I+O VS, Fishbone, I+O Laboratory Tests 10/20/18 04:49 Red Blood Count 4.72, Mean Corpuscular Volume 89.6, Mean Corpuscular Hemoglobin 30.3, Mean Corpuscular Hemoglobin Concent 33.8, Red Cell Distribution Width 13.2, Neutrophils (%) (Auto) 58.8, Lymphocytes (%) (Auto) 28.4, Monocytes (%) (Auto) 9.3 H, Eosinophils (%) (Auto) 2.9, Basophils (%) (Auto) 0.3, Neutrophils # (Auto) 5.6, Lymphocytes # (Auto) 2.7, Monocytes # (Auto) 0.9 H, Eosinophils # (Auto) 0.3, Basophils # (Auto) 0.0, Calcium Level 8.4 L, Aspartate Amino Transf (AST/SGOT) 39 H, Alanine Aminotransferase (ALT/SGPT) 59, Alkaline Phosphatase 44 L, Total Bilirubin 0.5, Total Protein 7.2, Albumin 3.2 Vital Signs Date Time Temp Pulse Resp B/P (MAP) Pulse Ox O2 Delivery O2 Flow Rate FiO2 10/20/18 07:42 97.6 83 18 136/88 (104) 98 10/19/18 00:00 3.0 10/18/18 20:00 Nasal Cannula I&O- Last 24 Hours up to 6 AM 10/20/18 06:00 Intake Total 2935 ml Output Total 3975 ml Balance -1040 ml AMINA RIVERA MD October 20, 2018 08:42
--- NOTE | 2018-10-20 10:10 | REP ---
BILATERAL RIBS, PA CHEST, FIVE VIEWS: HISTORY: Rib pain. COMPARISON: 10/18/2018. The lungs are clear. The heart is normal in size. The pulmonary vasculature is normal in appearance. The bony structure is intact. IMPRESSION:No acute disease. Electronically Signed by Johnathon Manriquez MD 10/20/2018 10:12 A
[2018-10-20 11:44] VITALS: BP 127/71
[2018-10-20] MEDS: LevoFLOXacin 750 MG TABLET PO SCH (14:29)
[2018-10-20 15:48] VITALS: BP 134/84
--- NOTE | 2018-10-20 16:32 | ECGEPIP ---
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
[2018-10-20] MEDS ORDERED: cloNIDine 0.1 MG TAB PO ONE (16:45)
[2018-10-20 20:00] VITALS: BP 144/80
[2018-10-21] VITALS (8 sets, daily range): BP systolic 113–153; BP diastolic 64–87
[2018-10-21] MEDS ORDERED: ACETAMINOPHEN TAB 650MG DOSE (2X325MG) PO ONE
[2018-10-21] MEDS: LevoFLOXacin 750 MG TABLET PO SCH (05:33)
[2018-10-21 06:15] LABS: BASO % 0.5 % (0.0-1.0); EOS # 0.1 10^3/uL (0.0-0.50); EOS % 1.4 % (0.0-3.0); HEMATOCRIT 44.2 % (42.0-52.0); HEMOGLOBIN 15.3 g/dl (13.5-17.5); LYMPH # 1.6 10^3/uL (1.5-6.5); LYMPH % 27.2 % (24.0-44.0); MEAN CORPUSCULAR HEMOGLOBIN 30.4 pg (27.0-33.0); MEAN CORPUSCULAR HGB CONC 34.6 g/dl (32.0-36.5); MEAN CORPUSCULAR VOLUME 87.9 fl (80.0-96.0); MONO # 0.7 10^3/uL (0.0-0.8); MONO % 12.1 % (0.0-5.0); NEUTROPHILS # 3.4 10^3/uL (1.8-7.7); NEUTROPHILS % 58.3 % (36.0-66.0); PLATELET COUNT, AUTOMATED 207 10^3/uL (150-450); RED BLOOD COUNT 5.03 10^6/uL (4.30-6.10); WHITE BLOOD COUNT 5.9 10^3/uL (4.0-10.0)
[2018-10-21 06:39] LABS: ALBUMIN 3.4 GM/DL (3.2-5.2); ALT/SGPT 48 U/L (12-78); BILIRUBIN,TOTAL 0.8 MG/DL (0.2-1.0); BLOOD UREA NITROGEN 7 MG/DL (7-18); CALCIUM LEVEL 8.6 MG/DL (8.5-10.1); CARBON DIOXIDE LEVEL 28 MEQ/L (21-32); CHLORIDE LEVEL 107 MEQ/L (98-107); GLOMERULAR FILTRATION RATE > 60.0 (>60); GLUCOSE, FASTING 97 MG/DL (70-100); POTASSIUM SERUM 3.7 MEQ/L (3.5-5.1); SODIUM LEVEL 138 MEQ/L (136-145); TOTAL PROTEIN 8.1 GM/DL (6.4-8.2)
[2018-10-21] MEDS ORDERED: cloNIDine 0.1 MG TAB PO PRN (11:15)
[2018-10-21] MEDS: IBUPROFEN 400 MG TAB PO PRN ×2 (11:16→20:27)
--- NOTE | 2018-10-21 11:54 | IPNPDOC ---
Text Note Date of Service The patient was seen on 10/21/18. NOTE Subjective: Patient seen and examined at bedside. Still complains of right rib pain, and dry cough. No acute overnight events reported. Objective: General: NAD, lying comfortably in bed HEENT: NC/AT, EOMI Lungs: CTA B/L Heart: +S1S2, RRR Abd: soft, +BS CHIEF COMPLAINT: Drug Overdose ASSESSMENT: 27 yo male for drug overdose, history of suicidal ideation. #drug overdose - no events noted on telemetry - suicide precautions - transfer to floor #possible PNA - oral levaquin - SCx and BCx NTD - respiratory panel shows parainfluenza 3 #anxiety/depression #transaminitis - resolved Dispo: medically stable for psych eval and possible discharge to [facility]; transfer to medical floor VS,Usman, I+O VS, Usman, I+O Laboratory Tests 10/21/18 05:30 Red Blood Count 5.03, Mean Corpuscular Volume 87.9, Mean Corpuscular Hemoglobin 30.4, Mean Corpuscular Hemoglobin Concent 34.6, Red Cell Distribution Width 12.8, Neutrophils (%) (Auto) 58.3, Lymphocytes (%) (Auto) 27.2, Monocytes (%) (Auto) 12.1 H, Eosinophils (%) (Auto) 1.4, Basophils (%) (Auto) 0.5, Neutrophils # (Auto) 3.4, Lymphocytes # (Auto) 1.6, Monocytes # (Auto) 0.7, Eosinophils # (Auto) 0.1, Basophils # (Auto) 0.0, Calcium Level 8.6, Aspartate Amino Transf (AST/SGOT) 21, Alanine Aminotransferase (ALT/SGPT) 48, Alkaline Phosphatase 48, Total Bilirubin 0.8 #, Total Protein 8.1, Albumin 3.4 Vital Signs Date Time Temp Pulse Resp B/P (MAP) Pulse Ox O2 Delivery O2 Flow Rate FiO2 10/21/18 08:00 98.2 83 18 135/78 (97) 94 10/19/18 00:00 3.0 10/18/18 20:00 Nasal Cannula I&O- Last 24 Hours up to 6 AM 10/21/18 06:00 Intake Total 2040 ml Output Total 1450 ml Balance 590 ml AMINA RIVERA MD October 21, 2018 11:54
--- NOTE | 2018-10-21 14:32 | REP ---
CHEST, TWO VIEWS: There is no evidence of acute infiltrate. No pleural effusion is seen. The heart is normal in size. The mediastinal silhouette is unremarkable. The visualized osseous structures are intact. IMPRESSION: No acute pulmonary disease. Electronically Signed by Willie Freire MD 10/21/2018 03:56 P
[2018-10-21] MEDS: ALBUTEROL 90 MCG/ACT 8GM HFA INHALER INH PRN (15:16)
[2018-10-21] MEDS ORDERED: SLF 3 ML SYR IV PRN (15:30)
[2018-10-21] MEDS ORDERED: BENZONATATE 100 MG CAP PO ONE (20:45)
[2018-10-21] MEDS: SLF 3 ML SYR IV SCH (22:08)
[2018-10-22] MEDS: LevoFLOXacin 750 MG TABLET PO SCH (05:41)
[2018-10-22] MEDS: IBUPROFEN 400 MG TAB PO PRN (05:41)
[2018-10-22] MEDS: SLF 3 ML SYR IV SCH (05:42)
[2018-10-22 08:00] VITALS: BP 118/71
[2018-10-22] MEDS ORDERED: BENZONATATE 100 MG CAP PO SCH (09:00)
[2018-10-22] MEDS: ALBUTEROL 90 MCG/ACT 8GM HFA INHALER INH PRN (11:31)
[2018-10-22 12:00] VITALS: BP 152/97
--- NOTE | 2018-10-22 12:43 | MHCRPDOC ---
[facility] Consultation Consultation DATE OF CONSULTATION: 10/22/18 CONSULTATION REQUESTED BY: Dr. Huston REASON FOR CONSULTATION: Determine if patient intentionally or accidentally overdosed in order to decide if he should be discharged or if he should be transferred to [facility]. RELEVANT HISTORY: The patient is a 27 year old male who says that he overdosed on heroin, he didn't want to kill himself, he thinks that the heroin he used was stronger than the one he uses regularly because he got it from a different dealer. he has overdosed several times, he has been in and out of Rehab (6 times) and [facility] memo. He says he doesn't want to [facility], he just wants to go home, he knows that he can go to a friend's house who just recently got released from Rehab. 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 During our conversation he told me that he stopped talking to his father when he was 20 because his father, who was a cocaine addict, sent him to buycocaine and when he came back with it, his father called the police and put him in [facility]. He still doesn't know why his father did that. His drug abuse has strained the relationship between him and his mother. He says he is afraid of dying from an overdose but when he feels the urge to use the drug, he doesn't feel that fear. He likes heroin because it makes him feel invincible. He uses methamphetamines too. PAST PSYCHIATRIC HISTORY: Salvatore merritt, several overdose,been to Rehab several times PAST MEDICAL HISTORY: Asthma FAMILY HISTORY: Mother: alive, lives in this are, she can't stand his drug problem Father: alive, lives in this are, he has a estranged relationship with the patient, please read Relevant History Siblings: Two sisters, he doesn't talk much to them Children: none PERSONAL AND SOCIAL HISTORY: The patient was born and raised in [place]. Resides in: [place] Marital Status: S Single Children: None Employment: Unemployed SUBSTANCE ABUSE HISTORY: Smoking: Yes, but it is not his drug of choice ETOH: Occasional Illicit Drugs: heroin and methamphetamines. LEGAL HISTORY: . MENTAL STATUS EXAMINATION: Patient is a [AGE]-year old male, who is alert, cooperative, dressed in hospital clothes Speech is normal in rate, tone and volume. Language skills are good. Thought processes including: linear, coherent. Thought content: goal orientated, he has plans for the future, he wants to go back to school, wants to become a POWDER CARRIER. Description of associations: intact. Description of abnormal or psychotic thoughts: denies SI, denies HI, denies AV hallucinations. Judgment: Poor Insight: good. Orientation to x 3. Recent and remote memory: good. Attention span and concentration: normal. Language: Namibian. Fund of knowledge: average. Mood: a little anxious Affect: congruent with mood, a little constricted,anxious. DIAGNOSIS: 1. heroin use disorder 2. amphetamine use disorder 3. accidental overdose 4. anxiety PLAN: 1. Patient doesn't need to be transferred to [facility], he didn't overdose intentionally, it was accidental. he is aware of his drug problem and he says that he wants to go to College, become a POWDER CARRIER. He is goal orientated, which means he is not suicidal. He says he will go to [facility], where he has been many times Vital Signs Vital Signs Date Time Temp Pulse Resp B/P (MAP) Pulse Ox O2 Delivery O2 Flow Rate FiO2 10/22/18 08:00 99.4 75 20 118/71 (87) 95 10/19/18 00:00 3.0 10/18/18 20:00 Nasal Cannula Home Medications Current Medications Current Medications Albuterol Sulfate (Proventil, Ventolin Hfa) 2 puff Q6HP PRN INH SHORTNESS OF BREATH Last administered on 10/22/18at 11:31; Start 10/21/18 at 15:00 Benzonatate (Tessalon Perles) 100 mg TID PO Last administered on 10/22/18at 09:22; Start 10/22/18 at 09:00 Clonidine HCl (Catapres) 0.1 mg TIDP PRN PO WITHDRAWAL SYMPTOMS Last administered on 10/21/18at 14:59; Start 10/21/18 at 11:15 Home Med (Med Rec Complete!) ASDIRECTED XX ; Start 10/18/18 at 13:30; Stop 10/18/18 at 13:30; Status DC Ibuprofen (Advil) 400 mg Q8HP PRN PO PAIN Last administered on 10/22/18at 05:41; Start 10/21/18 at 11:15 Levofloxacin (Levaquin) 750 mg DAILY@06 PO Last administered on 10/22/18at 05:41; Start 10/20/18 at 08:45 Sodium Chloride 1,000 ml @ 125 mls/hr Q8H IV Last administered on 10/19/18at 06:28; Start 10/18/18 at 14:30; Stop 10/19/18 at 08:08; Status DC Sodium Chloride (Saline Lock Flush) 2 ml ASDIRECTED PRN IV SEE LABEL COMMENTS; Start 10/21/18 at 15:30; Stop 10/22/18 at 10:41; Status DC Sodium Chloride (Saline Lock Flush) 2 ml SLF IV Last administered on 10/21/18at 22:08; Start 10/21/18 at 22:00; Stop 10/22/18 at 10:41; Status DC Unable to Obtain Active Prescriptions or Reported Meds Allergies Coded Allergies: Cephalosporins (Verified Allergy, Unknown, 10/18/18) Penicillins (Verified Allergy, Unknown, 10/18/18) clindamycin (Verified Allergy, Unknown, 10/18/18) PROSPER EPPS MD October 22, 2018 12:26
[2018-10-22] MEDS ORDERED: LEVA750T7 PO (13:33)
--- NOTE | 2018-10-22 15:47 | DS.PDOC ---
Discharge Summary General Date of Admission October 18, 2018 at 14:15 Date of Discharge 10/22/18 Specialist/Consultants Involve: PROSPER EPPS MD Discharge Summary PROCEDURES PERFORMED DURING STAY: [None]. ADMITTING DIAGNOSES: 1. Drug overdose DISCHARGE DIAGNOSES: 1. Unintentional drug overdose COMPLICATIONS/CHIEF COMPLAINT: Overdose. HISTORY OF PRESENT ILLNESS: 27yo male admitted for drug overdose. Was somnolent and responsive only to noxious stimuli on admission. Was admitted to ICU for observation. Patients cognition improved and was deemed medically stable for psych evaluation for possible discharge to [facility]. Evaluated by psychiatry, deemed unintentional overdose, and discharged home with outpatient follow up. Hospital stay significant for possible community acquired pneumonia on CXR, and viral respiratory infection (parainfluenza). DISCHARGE MEDICATIONS: Please see below. ALLERGIES: Please see below. PHYSICAL EXAMINATION ON DISCHARGE: VITAL SIGNS: Please see below. GENERAL: NAD HEENT: NC/AT, EOMI Lungs: CTA B/L Heart: +S1S2, RRR Abd: soft, NT, +BS Ext: no edema LABORATORY DATA: Please see below. ACTIVITY: [As tolerated]. DISPOSITION: 01 Home, Self-Care. DISCHARGE INSTRUCTIONS: 1. Follow up with PCP in 3-5 days. One will be assigned by [facility] physicians. 2. Follow up with psych/[facility] as directed. DISCHARGE CONDITION: [Stable]. TIME SPENT ON DISCHARGE: Greater than 30 minutes. Vital Signs/I&Os Vital Signs Date Time Temp Pulse Resp B/P (MAP) Pulse Ox O2 Delivery O2 Flow Rate FiO2 10/22/18 12:00 98.2 102 20 152/97 (115) 95 10/19/18 00:00 3.0 10/18/18 20:00 Nasal Cannula l I&O- Last 24 Hours up to 6 AM 10/22/18 06:00 Intake Total 1680 ml Output Total 2275 ml Balance -595 ml Microbiology Microbiology 10/18/18 Blood Culture - Preliminary, Resulted No Growth after 72 hours. All specime... 10/18/18 Blood Culture - Preliminary, Resulted No Growth after 72 hours. All specime... 10/20/18 Respiratory Virus Panel (PCR) (BA) - Final, Complete Parainfluenza 3 (Piv3) Discharge Medications Scheduled Levofloxacin (Levaquin) 750 Mg Tablet, 750 MG PO DAILY@06 Allergies Coded Allergies: Cephalosporins (Verified Allergy, Unknown, 10/18/18) Penicillins (Verified Allergy, Unknown, 10/18/18) clindamycin (Verified Allergy, Unknown, 10/18/18) AMINA RIVERA MD October 22, 2018 15:47
== END 2018-10-22 14:26 | disposition home or self-care (01) | DRG 816 ==
LOC: M ED 07:11 → EDBD 07:11 → M ED INP 14:15 → M ICU 15:40 → M PCU 10-19 21:00
PROVIDERS: ADMIT Internal Medicine; ATTEND Internal Medicine
DX: T40.1X1A Poisoning by heroin, accidental (unintentional), initial encounter (principal); J18.9 Pneumonia, unspecified organism; F32.9 Major depressive disorder, single episode, unspecified; F41.9 Anxiety disorder, unspecified; F16.10 Hallucinogen abuse, uncomplicated; F15.10 Other stimulant abuse, uncomplicated; R74.0 Nonspecific elevation of levels of transaminase and lactic acid dehydrogenase [LDH]; Z88.0 Allergy status to penicillin; Z88.1 Allergy status to other antibiotic agents